=== PATIENT | female | born 1980 | race Two or more races ===

== ENCOUNTER 2019-04-30 13:12 | Emergency (ER) | payer BC ==
[~2019-04-30] VITALS: Ht 165.1 cm; Wt 53.5 kg
== END 2019-04-30 16:21 | disposition home or self-care (01) ==
LOC: ER 13:12
DX: R19.7 Diarrhea, unspecified (principal)

== ENCOUNTER 2019-05-21 08:22 | Outpatient (CLI) | payer BC | END 2019-05-21 08:53 | disposition home or self-care (01) | LOC: SONOGRAMA 08:22 | DX: R10.84 Generalized abdominal pain (principal) ==